=== PATIENT | female | born 1980 ===

== ENCOUNTER 2017-11-16 20:30 | Emergency (ER) | payer MEDICAID ==
[2017-11-16 20:47] VITALS: RESP 16; O2SAT 98
--- NOTE | 2017-11-16 21:59 | ED PDOC ---
HPI: Female Pain Time Seen by Provider: 11/16/17 20:59 Chief Complaint (Nursing): Female Genitourinary Chief Complaint (Provider): Female Genitourinary History Per: Patient History/Exam Limitations: no limitations Onset/Duration Of Symptoms: Days (x 1) Current Symptoms Are (Timing): Still Present Additional Complaint(s): 37 year old female () presents to the ED complaining of vaginal discharge, onset 1 day ago. Patient is currently 13 weeks with twins. she reports brown vaginal discharge and that it has happened once before during . Denies vaginal bleeding, nausea, vomiting and abdominal pain. PMD: Dr. Patricia Randall : 4 Para: 3 Past Medical History Reviewed: Historical Data, Nursing Documentation, Vital Signs Vital Signs: Last Vital Signs Temp 98.1 F 11/16/17 20:44 Pulse 82 11/16/17 20:44 Resp 16 11/16/17 20:44 BP 134/63 11/16/17 20:44 Pulse Ox 98 11/16/17 20:44 - Medical History PMH: No Chronic Diseases - Surgical History Surgical History: No Surg Hx - Family History Family History: States: Unknown Family Hx - Allergies Allergies/Adverse Reactions: Allergies Allergy/AdvReac Type Severity Reaction Status Date / Time No Known Allergies Allergy Verified 07/23/14 11:22 Review of Systems ROS Statement: Except As Marked, All Systems Reviewed And Found Negative Gastrointestinal: Negative for: Nausea, Vomiting, Abdominal Pain Genitourinary Female: Positive for: Vaginal Discharge (brown). Negative for: Vaginal Bleeding Physical Exam - Reviewed Nursing Documentation Reviewed: Yes Vital Signs Reviewed: Yes - Physical Exam Appears: Positive for: Non-toxic, No Acute Distress Head Exam: Positive for: ATRAUMATIC, NORMOCEPHALIC Skin: Positive for: Normal Color, Warm, Dry Eye Exam: Positive for: EOMI, Normal appearance, PERRL Neck: Positive for: Normal, Painless ROM, Supple Cardiovascular/Chest: Positive for: Regular Rate, Rhythm Respiratory: Positive for: Normal Breath Sounds. Negative for: Respiratory Distress Gastrointestinal/Abdominal: Positive for: Other (gravid uterus). Negative for: Tenderness Back: Positive for: Normal Inspection. Negative for: L CVA Tenderness, R CVA Tenderness, Vertebral Tenderness Extremity: Positive for: Normal ROM. Negative for: Deformity Neurologic/Psych: Positive for: Alert, Oriented. Negative for: Motor/Sensory Deficits - ECG O2 Sat by Pulse Oximetry: 98 (RA) Pulse Ox Interpretation: Normal Medical Decision Making Medical Decision Making: Time: 21:02 Impression: physiological discharge of Initial Plan: --Blood type and screen --Beta-hcg --OB US Time: 6 --US OB FINDINGS: Fetus: Twin live intrauterine gestation. Diamniotic, monochorionic. Heart rate: Fetus A heart rate of 153 beats per minute. Fetus B heart rate of 159 beats per minute. Presentation: Fetus A - Cephalic. Fetus B - Breech. Placenta: Anterior placenta. No placenta previa or abruption. Amniotic fluid: Unremarkable. Anatomy: No anomaly is appreciated. BIOMETRICS Gestational age by US: Fetus A gestational age of 13 weeks 1 day by measurements. Fetus B gestational age of 13 weeks 5 days by measurements. EFW: Fetus A - 67 g. Fetus B - 77 g. MATERNAL: Uterus: Unremarkable. No myometrial mass. Cervix: No cervical dilatation or effacement. Adnexa: Ovaries not visualized. No adnexal masses. Free fluid: No significant free fluid. IMPRESSION: 1. Twin live intrauterine gestation. Thank you for allowing us to participate in the care of your patient Time: 9 --Upon provider reevaluation, patient is medically stable and requires no further treatment in the ED at this time. Complete pelvic rest instructions given. Patient will be discharged home. Counseling was provided and all questions were answered regarding diagnosis and need for follow up with [facility]. There is agreement to discharge plan. Return if symptoms persist or worsen. Clinical Impression: Vaginal bleeding in Scribe Attestation: Documented by Kinsey Ortiz, acting as a scribe for Lucho Pierce MD Provider Scribe Attestation: All medical record entries made by the Scribe were at my direction and personally dictated by me. I have reviewed the chart and agree that the record accurately reflects my personal performance of the history, physical exam, medical decision making, and the department course for this patient. I have also personally directed, reviewed, and agree with the discharge instructions and disposition. Disposition - Clinical Impression Clinical Impression: Vaginal bleeding in - Patient ED Disposition Is Patient to be Admitted: No Counseled Patient/Family Regarding: Studies Performed, Diagnosis, Need For Followup - Disposition Referrals: [facility] [Outside] Disposition: Routine/Home Disposition Time: 00:10 Condition: GOOD Instructions: Threatened Miscarriage (ED) Forms: [email or web address] (Japanese)
--- NOTE | 2017-11-16 23:17 | US ---
EXAM: US After First Trimester, Transabdominal CLINICAL HISTORY: 37 years old, female; Signs and symptoms; Lmp or gestational age (in weeks): 08/08/17; Antepartum complications; Other: Spotting; ; Additional info: 13 wks, preg, vag discharge TECHNIQUE: Real-time transabdominal obstetrical ultrasound of the maternal pelvis and a second or third trimester with image documentation. COMPARISON: No relevant prior studies available. FINDINGS: Fetus: Twin live intrauterine gestation. Diamniotic, monochorionic. Heart rate: Fetus A heart rate of 153 beats per minute. Fetus B heart rate of 159 beats per minute. Presentation: Fetus A - Cephalic. Fetus B - Breech. Placenta: Anterior placenta. No placenta previa or abruption. Amniotic fluid: Unremarkable. Anatomy: No anomaly is appreciated. BIOMETRICS Gestational age by US: Fetus A gestational age of 13 weeks 1 day by measurements. Fetus B gestational age of 13 weeks 5 days by measurements. EFW: Fetus A - 67 g. Fetus B - 77 g. MATERNAL: Uterus: Unremarkable. No myometrial mass. Cervix: No cervical dilatation or effacement. Adnexa: Ovaries not visualized. No adnexal masses. Free fluid: No significant free fluid. IMPRESSION: 1. Twin live intrauterine gestation.
[2017-11-17 00:26] VITALS: BP 131/73; PULSE 89; TEMP 98.3
== END 2017-11-17 00:27 | disposition home or self-care (01) ==
LOC: H.ER 20:30
DX: O20.0 Threatened abortion (principal); Z3A.13 13 weeks gestation of pregnancy